=== PATIENT | female | born 1955 | race Caucasian/White ===

== ENCOUNTER → 2019-07-18 09:16 | Outpatient (CLI) | payer BC, SELFPAY ==
--- NOTE | ~2019-07-18 | DEXA_ITS ---
Bone Density Report Name: Nona Rubio Age: 63 Sex: Female Ethnicity: White Date of : 1955 Indication: postmenopausal; screening for osteoporosis; hysterectomy; Referring Provider: JUNAID CLEMENTS Study: Bone densitometry was performed. Exam Date: July 18, 2019 Accession number: [id number] Bone Density: Region BMD T-score Z-score Classification AP Spine (L1-L4) 0.904 -1.3 0.4 Osteopenia Femoral Neck (Left) 0.832 -0.2 1.3 Normal Total Hip (Left) 0.998 0.5 1.6 Normal Femoral Neck (Right) 0.781 -0.6 0.8 Normal Total Hip (Right) 0.921 -0.2 1.0 Normal Total Hip Mean 0.960 0.2 1.3 Normal World Health Organization criteria for BMD impression classify patients as: Normal (T-score at or above -1.0), Osteopenia (T-score between -1.0 and -2.5), or Osteoporosis (T-score at or below -2.5). 10-year Fracture Risk(1): Major Osteoporotic Fracture 7.3% Hip Fracture 0.3% Reported Risk Factors: [place] (), Neck BMD=0.781, BMI=25.4 (1) FRAX(R) Version 3.08. Fracture probability calculated for an untreated patient. Fracture probability may be lower if the patient has received treatment. Clinical Information Provided by Patient: Has used the following medications: Vitamin D, Calcium Has the following medical conditions: Hysterectomy Patient maximum height was 64.2 Menopause Age: 50 Drinks caffeinated beverages Onset of menses at age 13 Number of children 3 Impression: The patient has low bone mass, based on the Total Spine T-score. The patient has an estimated ten-year risk of hip fracture of 0.3% and an estimated ten-year risk of major fracture of 7.3%, based on the WHO FRAX algorithm. Discussion: BONE DENSITY IS LOW AT ONE OR MORE SKELETAL SITES. This patient's lowest T-score is low at one or more skeletal sites. It meets the World Health Organization's (WHO) criteria for ?low bone mass? (T-score between -1.0 and -2.5). The patient's 10-year risk of fracture as calculated by FRAX is less than the threshold where pharmacological therapy is recommended by the National Osteoporosis Foundation (NOF). However, all treatment decisions require clinical judgment and consideration of individual patient factors, including patient preferences, comorbidities, previous drug use, risk factors not captured in the FRAX model (e.g., frailty, falls, vitamin D deficiency, increased bone turnover, interval significant decline in bone density) and possible under or overestimation of fracture risk by FRAX. The patient should follow a healthful lifestyle (good nutrition with adequate calcium and vitamin D, and appropriate weight-bearing exercise). Follow-Up: Consider repeating this study in 2 to 3 years to reassess this patient's status, or sooner if there is some new clinical indication. Reported
== END ==
PROVIDERS: PCP Family Medicine; Visit Provider Obstetrics & Gynecology
DX: Z78.0 Asymptomatic menopausal state (principal); M85.88 Other specified disorders of bone density and structure, other site
CPT/HCPCS: 77080

== ENCOUNTER → 2019-08-01 12:45 | Outpatient (CLI) | payer BC, SELFPAY ==
--- NOTE | ~2019-08-01 | XR_ITS ---
EXAMINATION: XR hip LT min 2V DATE: 08/01/2019 13:26 INDICATION: Left hip pain. TECHNIQUE: 2 views of left hip were obtained. COMPARISON: None. FINDINGS: Bone alignment is normal. No fracture. There is a 16 mm sclerotic lesion in proximal femora l diaphysis. Left hip joint space is normal. IMPRESSION: 1. Sclerotic lesion in proximal femoral diaphysis. In the absence of known malignancy, this finding i s likely benign. Reviewed, dictated and finalized at location A. [facility] IMPRESSION: 1. Sclerotic lesion in proximal femoral diaphysis. In the absence of known aide gnancy, this finding is likely benign.
== END ==
PROVIDERS: PCP Family Medicine; Visit Provider Family Medicine
DX: M25.552 Pain in left hip (principal); M89.9 Disorder of bone, unspecified
CPT/HCPCS: 73502

== ENCOUNTER 2025-01-11 01:30 | Day surgery (SDC) | payer MEDICARE, SELFPAY ==
[2024-12-25 14:16] VITALS: BMI 26.6
--- OUTSIDE RECORDS SUMMARY | 2025-01-11 01:34 | XMS_ITS | Clinical Summary ---
Author Organization [facility] Address [address] [place] [address] Care Team Providers Care Certified Nursing Attendant Name Role Phone Benjamin Morfin MD Primary Care Provider [phone] Source Comments [facility],non-owned Affiliates and Associated Physician Practices is amultiple site organization consisting of ambulatory clinics and hospital sitesin [place], [place], [place] and [place]. This disclosure is being madepursuant to the Care Everywhere program and may not contain all information available regarding this patient. Last updated 18.[facility] Allergies No known active allergies Medications * Be aware that medications may not be up to date on this document. Alwaysverify current medications with the patient. No known medications Immunizations Immunization Administration Dates Next Due iNFLUENZA VACCINE, RECOM-LASSITER, QUADR. (FLUBLOCK QUADRIVALENT; 18Y+) (RIV4) 04/06/2018 Social History Tobacco Use Types Packs/Day Years Used Date Smoking Tobacco: Never Comments No Sex and Gender Information Value Date Recorded Sex Assigned at Not on file Legal Sex Female 8:54 AM CDT Gender Identity Not on file Sexual Orientation Not on file Last Filed Vital Signs Vital Sign Reading Time Taken Comments Blood Pressure 124/80 10/02/2016 9:26 AM CDT Pulse 128 10/02/2016 9:26 AM CDT Temperature 38.3 C (100.9 F) 10/02/2016 9:26 AM CDT Respiratory Rate 18 10/02/2016 9:26 AM CDT Oxygen Saturation 97% 10/02/2016 9:26 AM CDT Inhaled Oxygen Concentration - - Weight 64.9 kg (143 lb) 10/02/2016 9:26 AM CDT Height 162.6 cm (5' 4) 10/02/2016 9:26 AM CDT Body Mass Index 24.55 10/02/2016 9:26 AM CDT Plan of Treatment Health Maintenance Due Date Last Done Comments BONE DENSITY TESTING 1955 COLOGUARD (AGES 45-75) - COL ON CA SCREENING 1955 COLON MONITORING 1955 COLONOSCOPY - COLON CA SCREENING 1955 CT COLONOGRAPHY - COLON CA SCREENING 1955 Colorectal Cancer Screening 1955 FIT - COLON CA SCREENING 1955 FLEX SIG - COLON CA SCREENING 1955 LIPID TESTING 1955 MAMMOGRAM 1955 HEPATITIS C SCREENING 12/21/1973 DTAP/TDAP/TD VACCINES (1 - Tdap) 12/25/1974 PNEUMOCOCCAL VACCINE 50+ (1 of 1 - PCV) 12/25/2005 ZOSTER VACCINE (1 of 2) 12/25/2005 COVID-19 VACCINE (1 - 2023-2 5 season) 2024 DEPRESSION SCREENING 05/31/2024 INFLUENZA VACCINE (#1) 2025 04/06/2018 Respiratory Syncytial Virus (RSV) Vaccine Pt: or over 60 yrs (1 - 1-dose 75+ series) 12/25/2030 HEPATITIS B VACCINE Aged Out No longe r eligible based on patient's age to complete this topic HIB VACCINE Aged Out No longer eligi ble based on patient's age to complete this topic HPV VACCINE Aged Out No longer eligi ble based on patient's age to complete this topic MENINGOCOCCAL (Group B) VACC INE SHARED DECISION-MAKING Aged Out No longer eligibl e based on patient's age to complete this topic MENINGOCOCCAL GROUPS A/C/Y/W VACCINE Aged Out No longer eligible b ased on patient's age to complete this topic Insurance [employer] Care Teams Certified Nursing Attendant Relationship Specialty Start Date End Date Benjamin Morfin MD [facility] [place] [facility] [place] [address] PCP - General Family Medicine 10/02/16
[2025-01-11 06:14] VITALS: BP 138/62; PULSE 73; RESP 18; TEMP 36.6; O2SAT 99
[2025-01-11] MEDS: LACTATED RINGERS 1,000 ML 150 ML IV CONT (06:24)
--- NOTE | 2025-01-11 07:16 | P.PNAN_ITS ---
Anes - Initial Pre Proc Eval Procedure: Operation Date: 01/11/25 07:30 Proposed Procedures p Colonoscopy - Zak Andrews MD Date/Time: 01/11/25 07:16 Surgeon: Zak Andrews MD Pre Op Diagnosis: Melena,Diarrhea,unspecified,Constipation,unspecied Patient Data Age: 69 Gender: F Height: 1.63 m Weight: 69.8 kg Last Vital Signs Temp 36.6 C 01/11/25 06:14 Pulse 73 01/11/25 06:14 Resp 18 01/11/25 06:14 BP 138/62 01/11/25 06:14 Pulse Ox 99 01/11/25 06:14 O2 Del Method Room Air 01/11/25 06:14 Allergies Allergy/AdvReac Type Severity Reaction Status Date / Time Sulfa (Sulfonamide Allergy Mild Rash Verified 12/25/24 14:13 Antibiotics) Home Medications ?Medication ?Instructions ?Recorded ?Confirmed ?Type levothyroxine 75 mcg tablet 75 mcg PO DAILY 12/25/24 01/11/25 History losartan 50 mg tablet 50 mg PO DAILY 12/25/24 01/11/25 History Patient hx anesthesia problems: none Family hx anesthesia problems: none Results Review: All pre-operative results and documents have been reviewed as part of the pre- operative evaluation. [facility] Past Medical History Medical History (Updated 01/11/25 @ 07:16 by Ori Carroll DO) Hypothyroidism Hypertension Social History Social History Smoking status: Never smoker Substance use type: does not use Living arrangements: with family Spiritual care concerns: No Anes - Eval Final PreProcedure Day of Procedure 01/11/25 07:16 Patient weight: overweight Heart: regular rate and rhythm Lungs: clear to auscultation Airway: Mallampati scale class II Neurological: alert and oriented Last oral intake: >/= 8 hours ASA classification: II Emergent: no Anesthetic plan: proceed Anesthesia type and monitoring: general GIVS and standard monitoring Results Review: All pre-operative results and documents have been reviewed as part of the pre- operative evaluation. Informed Consent: The patient's anesthetic plan and its attendant risks and benefits were discussed with the patient/family/POA. Questions were solicited and answers provided to the satisfaction of the patient/family/POA.
--- NOTE | 2025-01-11 07:37 | PM.HPGS ---
History of Present Illness History of Present Illness Consent: Risks, benefits, and alternatives have been discussed and questions answered. Patient agrees to proceed with procedure. Chief complaint: Melena,Diarrhea,unspecified,Constipation,unspecied Narrative: Nona Rubio is a 69 year old female here for colonoscopy, h/o straining and loose stools, had colonoscopy about 10 years ago Review of Systems Review of Systems: All systems reviewed & are unremarkable except as noted in HPI and below PMFSH Past Medical History Medical History (Updated 01/11/25 @ 07:38 by Zak Andrews MD) Loose stools Hypothyroidism Hypertension Social History Social History Smoking status: Never smoker Substance use type: does not use Living arrangements: with family Spiritual care concerns: No Meds Home Medications and Allergies Home Medications ?Medication ?Instructions ?Recorded ?Confirmed ?Type levothyroxine 75 mcg tablet 75 mcg PO DAILY 12/25/24 01/11/25 History losartan 50 mg tablet 50 mg PO DAILY 12/25/24 01/11/25 History Allergies Allergy/AdvReac Type Severity Reaction Status Date / Time Sulfa (Sulfonamide Allergy Mild Rash Verified 12/25/24 14:13 Antibiotics) Vital Signs Vital Signs - 24 hr 01/11/25 06:14 Temperature 97.8 F Pulse Rate 73 Respiratory Rate 18 Blood Pressure 138/62 Pulse Oximetry 99 Oxygen Delivery Room Air Exam Const: General: comfortable and no acute distress HENMT: Face/Nose/Sinus: Normal nares present Eyes: General: appearance normal, both eyes and all related structures Neck: Neck: no JVD Resp: Auscultation: clear to auscultation bilaterally Cardio: Rate: regular rate Rhythm: regular rhythm GI: Inspection: non-distended GI Palp: Yes Soft to palpation Skin: General skin exam: normal color Neuro: Speech: normal speech Extrem: General: normal to inspection Psych: Mental Status: mental status grossly normal Assessment and Plan Assessment and plan (1) Loose stools: Code(s): R19.5 - Other fecal abnormalities Status: Acute Assessment and Plan: colonoscopy
--- NOTE | 2025-01-11 07:51 | S_PTH ---
PATIENT: Nona Rubio LOC: [facility]#:[id number] AGE/SX: 69/F ROOM: RE01/11/[address]: Zak Andrews MD : 1955 BED: DIS: 01/11/2025 SPEC #: [id number] RECD: 01/11/25 10:28 STATUS: LISA RENuria #: [id number] ELROY: 01/11/25 07:[address]: Zak Andrews DEPT: [facility] Surgical RECD BY: Madelin River ENTERED: 01/11/25 10:29 SP TYPE: Surgical OTHR DR: Benjamin MorfinMD Tissues: A - Colon Biopsy Procedures: Hematoxylin and Eosin Stain Gross and Microscopic Level 4
[2025-01-11 07:57] VITALS: BP 92/41; PULSE 64; RESP 23; O2SAT 96
[2025-01-11 08:07] VITALS: BP 100/53; PULSE 72; RESP 19; O2SAT 97
[2025-01-11 08:17] VITALS: BP 115/59; PULSE 57; RESP 20; O2SAT 97
== END 2025-01-11 08:21 | disposition home or self-care (01) ==
PROVIDERS: PCP Family Medicine; Referring Provider Family Medicine; Visit Provider Internal Medicine Gastroenterology
PROC: 0DJD8ZZ Inspection of Lower Intestinal Tract, Via Natural or Artificial Opening Endoscopic (ICD-10-PCS; CPT 45378; principal; 2025-01-11 07:30)
DX: K64.8 Other hemorrhoids (principal); K57.30 Diverticulosis of large intestine without perforation or abscess without bleeding; E03.9 Hypothyroidism, unspecified; I10 Essential (primary) hypertension
CPT/HCPCS: 45380; 88305; J2003; J2704; J7120